=== PATIENT | female | born 1950 | race Caucasian/White ===

== ENCOUNTER → 2018-12-26 | Outpatient (CLI) | payer MEDICARE, OTHER ==
--- NOTE | 2018-12-26 14:14 | RADRPT ---
PROCEDURE: XR pelvis and right hip. CLINICAL INDICATION: pain TECHNIQUE: AP pelvis, AP and frog lateral views of the hip were performed. COMPARISON: None. FINDINGS: The patient is status post right hip replacement. There is appropriate position of the prosthesis. Th ere is mild osteopenia. No acute fracture is noted. There are moderate degenerative changes of the le ft hip. RPTAT: AA IMPRESSION: Status post right hip replacement with appropriate position of the prosthesis. Moderate degenerative changes of the left hip. .Zeus Alonso MD, MD Date Time Electronically viewed and signed by .Zeus Alonso MD, on 12/26/2018 14:14 .S/
--- NOTE | 2018-12-26 16:57 | CONS ---
Consult Date/Type/Reason Admit Date/Time Initial Consult Date Date/Time of Note DATE: 12/26/18 TIME: 16:52 Subjective DOS: 11/27/2017 Procedure: Right JERI 13 months s/p right JERI who returns today for follow up. The patient is doing well overall. Pain is none. She is participating in all her activities that she would like to. Narcotic Pain medication: None Gait Aids: None Pain better than before surgery: Yes Pleased with outcome. Has no complaints. Of note she did start smoking again approximately 6 cigarettes a day Objective Vitals Weight: 135 pound Height: 5 foot Heart Rate: 59 Blood Pressure: 149/91 Exam General: Alert, oriented x3. No Acute Distress. Heart: Regular rate and rhythm. Lungs: No respiratory distress. No accessory muscle use. MUSCULOSKELETAL: Right lower Extremity: Sensation intact to light touch in a sural, saphenous, deep peroneal, superficial peroneal, medial and lateral plantar nerve distribution. Motor is intact, patient able to dorsiflex and plantarflex ankle and extend and flex great toe. Dorsalis Pedis pulse +2, Brisk capillary refill. Compartments are soft. Rises from seated position without difficulty. Gait: Breast pace. Slight limp, not antalgic, short left component no Trendelenburg. No gait aids. 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 Components in good position and alignment. No signs of wear, osteolysis, loosening, component failure, or fracture. No acute complications. The right hip is a couple millimeters longer than left hip as there is significant loss of joint space in the left hip. Assessment/Plan Hospital Course (Demo Recall) 68-year-old female doing well 13 months s/p right JERI. She has a slight limp in her gait but does not cause her any pain or difficulty. This is likely from her left leg being a couple millimeters shorter secondary to significant loss of joint space from osteoarthritis. She does not have any pain or symptoms in her left hip therefore no treatment is necessary. If the leg length begins to bother her I am recommending a very small shoe lift in her left shoe. - FU 1 year for repeat clinical and radiographic exam - Antibiotic dental prophylaxis for any cleaning or procedure ADENIKE MANZANO MD December 26, 2018 16:57
== END | disposition home or self-care (01) ==
LOC: HKI 09:42
PROVIDERS: ATTEND Orthopaedic Surgery Adult Reconstructive Orthopaedic Surgery
DX: Z47.1 Aftercare following joint replacement surgery (principal); Z96.641 Presence of right artificial hip joint
CPT/HCPCS: 73502; G0463